=== PATIENT | female | born 1955 | race Caucasian/White ===

== ENCOUNTER → 2025-08-01 11:12 | Outpatient (CLI) | payer MEDICARE, OTHER, SELFPAY ==
--- NOTE | 2025-08-01 11:16 | DI.MRI.S_ITS ---
PROCEDURE: MR LUMBAR SPINE WO CON INDICATIONS: low back pain TECHNIQUE: Noncontrast sagittal T1 spin echo and T2 fast echo, sagittal STIR, and T2 fast spin echo through the lumbar spine. In cases with scoliosis, additional coronal T2 fast spin echo may be performed. COMPARISON: None. FINDINGS: Image quality: Excellent. Alignment and Curvature: There is normal bony alignment. Bone Marrow: Superior endplate compression fracture at L1 with approximately 50% residual height. Approximately 3 mm retropulsion into the spinal canal. Marrow edema extends into the right L1 pedicle . Spinal Cord: Conus medullaris terminates at the L1 level. Visualized cord demonstrates normal signal and size. Paraspinous Soft Tissues: No paravertebral masses. T12-L1: Normal appearance. L1-L2: No foraminal or canal stenosis. L2-L3: Ligamentum flavum thickening and posterior disc bulge with mild central stenosis and no foraminal stenosis. L3-L4: Posterior disc bulge and ligamentum flavum thickening with mild central canal stenosis and no foraminal stenosis. L4-L5: Posterior disc bulge, facet hypertrophy and ligamentum flavum thickening with mild central canal stenosis. No foraminal stenosis. L5-S1: Posterior disc osteophyte with no central canal or foraminal stenosis. IMPRESSION: Compression fracture at L1 with 50% residual vertebral body height. Mild multilevel degenerative changes. Dictated by: Matt Nichole M.D. on 08/01/2025 at 13:50 Approved by: Matt Nichole M.D. on 08/01/2025 at 14:08
== END ==
LOC: MRI 11:15
PROVIDERS: PCP Internal Medicine; Referring Provider Physician Assistant; Visit Provider Physician Assistant
DX: S32.010A Wedge compression fracture of first lumbar vertebra, initial encounter for closed fracture (principal); M80.88XA Other osteoporosis with current pathological fracture, vertebra(e), initial encounter for fracture; M62.830 Muscle spasm of back; M51.369 Other intervertebral disc degeneration, lumbar region without mention of lumbar back pain or lower extremity pain; M48.061 Spinal stenosis, lumbar region without neurogenic claudication; M47.816 Spondylosis without myelopathy or radiculopathy, lumbar region; M25.78 Osteophyte, vertebrae; X58.XXXA Exposure to other specified factors, initial encounter
CPT/HCPCS: 72148